=== PATIENT | male | born 1985 | race Asian ===

== ENCOUNTER 2024-10-15 14:56 | Emergency (ER) | payer OTHER, SELFPAY ==
[2024-10-15 15:11] VITALS: BP 102/63
[2024-10-15 15:43] LABS: ALT (SGPT) 23 U/L (0-50); AST (SGOT) 23 U/L (17-59); Albumin 4.6 g/dl (3.5-5.0); Alkaline Phosphatase 50 U/L (38-126); Blood Urea Nitrogen 20 mg/dl (9-20); Carbon Dioxide 26 mmol/L (22-30); Chloride 108 mmol/L (98-107); Glucose 132 mg/dl (70-99); Potassium 3.8 mmol/L (3.5-5.1); Sodium 141 mmol/L (135-145); Total Protein 7.5 g/dl (6.3-8.2); eGFR > 60.00
[2024-10-15 15:58] LABS: Hematocrit 39.5 % (39.0-52.0); Hemoglobin 13.8 g/dL (13.0-18.0); Mean Corp Hgb Conc. 34.9 g/dL (33.0-37.0); Mean Corpuscular Hgb 30.6 pg (27.0-31.0); Mean Corpuscular Volume 87.6 fL (80.0-94.0); Red Blood Cell Count 4.51 10^6/uL (4.70-6.10); Red Cell Dist. Width 13.6 % (11.5-14.5); White Blood Cell Count 3.7 10^3/uL (4.8-10.8)
--- NOTE | 2024-10-15 16:45 | ED.GENMED ---
History of Present Illness
General
Chief Complaint: Flank Pain
Source: patient
Exam Limitations: none
Time Seen by Provider: 10/15/24 16:43
Nursing documentation reviewed up to this point in time: agreed with
History of Present Illness
History of Present Illness:
Patient is a 39-year-old male who presents to the ER complaint of left lower back pain that is now radiating to his left leg. Patient reports symptoms started 2 to 3 days ago. He denies injury. He has pain worse with movement and can barely stand
today and walk. He denies any numbness tingling weakness to legs. He denies any bowel or bladder incontinence. He denies any injury trauma. He denies any radiation to his abdomen. Denies any testicular radiation. Denies any urinary frequency
urgency or dysuria. He denies any associated fever or chills. No prior history of kidney stone.
Review of Systems
Review of Systems
All Other Systems: ROS reviewed and negative except as documented in HPI and ROS
Constitutional: Reports no symptoms
Respiratory: Reports no symptoms
Cardiac: Reports no symptoms
ABD/GI: Reports no symptoms; Denies abdominal pain, nausea or vomiting
: Denies flank pain, urgency or discharge
Musculoskeletal: Reports other (left low back pain)
Skin: Reports no symptoms
Psychiatric: Reports no symptoms
Phy Exam
General Physical Exam
General Presentation: no apparent distress
General age: appears stated age
General Skin: warm and dry
General Habitus: normal
General Mental: alert
General Hydration: appears well hydrated
Neurological Exam
Neurological Exam: alert, oriented x3, no motor deficits, no sensory deficits and other ( normal distal sensation to bilateral lower extremities normal dorsiflexion plantarflexion; neg straight leg raise )
[place] Coma Scale
Eye Opening: Spontaneous
Verbal Response: Oriented
Motor Response: Obeys Commands
GCS Total Score: 15
Musculoskeletal Exam
Musculoskeletal Exam: other (+ mild left lateral lumbar region )
Skin Exam
Skin Exam: normal color and warm/dry
Psychiatric Exam
Psychiatric Exam: normal mood/affect
Course
Orders/Labs/Results
Orders:
Orders
10/15/24 15:23
Complete Blood Count/With Diff Urgent
Comprehensive Metabolic Panel Urgent
10/15/24 16:56
Ketorolac [Toradol] 30 mg IM NOW STA
10/15/24 16:57
Dexamethasone Pf [Decadron] 10 mg PO NOW STA
diazePAM [Valium Injection] 5 mg IM NOW STA
10/15/24 16:58
Lidocaine [Lidocaine 4% Patch] 1 patch TOPICAL NOW STA
Apply Lidocaine patch(s) to:: ll back
10/15/24 18:17
HYDROmorphone [Dilaudid] 1 mg IM NOW STA
Abnormal Lab Results
10/15/24
15:23
WBC 3.7 L 10^3/uL
(4.8-10.8)
RBC 4.51 L 10^6/uL
(4.70-6.10)
Plt Count 87 L 10^3/uL
(130-400)
Chloride 108 H mmol/L
(98-107)
Glucose 132 H mg/dl
(70-99)
10/15/24 15:23
10/15/24 15:23
Vital Signs
Initial and Last Documented VS:
Initial Vital Signs
Temp Pulse Resp BP Pulse Ox
97.9 F 65 16 102/63 100
10/15/24 15:11 10/15/24 15:11 10/15/24 15:11 10/15/24 15:11 10/15/24 15:11
Last Documented Vital Signs
Temp Pulse Resp BP Pulse Ox
97.9 F 82 18 103/70 99
10/15/24 15:11 10/15/24 19:08 10/15/24 19:08 10/15/24 19:08 10/15/24 19:08
General Maintenance Mechanic consulted with Physician
General Maintenance Mechanic consulted with physician?: Yes (Lora )
MDM/Problems Addressed
MDM/Problems Addressed:
Symptoms are consistent with low back pain, sciatica. Patient with no neurological deficits will DC with steroids, muscle relaxer. Vital signs stable. I did review with patient that his white count was minimally low at 3.7 and his platelets were
low as well. He has no bleeding complaints or issues. Discussed close outpatient follow-up with family doctor for further evaluation of these findings.
*Pulse Oximetry
SaO2: 100
Oxygen Mode of Delivery: Room air
Patient hypoxic: no
*Critical Care Note
Total Time (30-74mins, 75-104mins- exclusive of procedures): Not Applicable
ED Attending Note
-
Portions of this chart may have been created with voice recognition software.� Occasional wrong word or��sound alike� substitutions may have occurred due to the inherent limitations of voice recognition software.
Discharge Plan
Departure
Patient Disposition: Home (Routine Discharge)
Date of Disposition: 10/15/24
Time of Disposition: 19:35
Patient with high blood pressure during this ER visit?: No
Condition: Fair
Covid-19: Not Applicable
Discharge Problem:
Low back pain, Sciatica
Instructions: Low back pain - ED discharge instructions, Sciatica - ED discharge instructions
Prescriptions:
New
cyclobenzaprine 10 mg tablet
10 mg PO TID PRN (Reason: muscle spasm) Qty: 10 0RF
lidocaine 5 % adhesive patch,medicated
1 patch topical DAILY Qty: 15 0RF
Rx Instructions:
remove after 12 hrs. apply to affected area
prednisone 10 mg Tablet
See Rx Instructions .ROUTE .COMPLEX Qty: 30 0RF
Rx Instructions:
Take By Mouth:
40 mg daily x3 days, 30 mg daily x3 days,
20 mg daily x3 days, 10 mg daily x3 days.
Referrals:
Susan Levine MD [Active, Oncology]
Monae Ngo MD [Family Provider, Family Practice]
Activity Restrictions/Additional Instructions:
Avoid lifting, you may gently walk. Moist compresses to back several times a day.
take prednisone as prescribed. You may take muscle relaxer as needed this will cause drowsiness no driving or drinking alcohol or taking this medication. Tylenol as needed. Use lidocaine patch as directed. Follow-up closely with your family
doctor in the next 7 days for reevaluation return if any worsening of symptoms.
In addition your platelets were low here as well as your white count. This will need to be closely evaluated by family doctor/hematology. Please call to make an appoint with hematology and your family doctor tomorrow.
Return if any worsening of symptoms.
Interventions
Interventions:
*Risk Screen - Suicide Last Done: 10/15/24 15:13
*Neglect/Abuse Screening Last Done: 10/15/24 15:13
*Nursing Disposition Last Done: 10/15/24 19:42
Discharge Date and Time
Discharge Date/Time: 10/15/24 19:42
Print Language: INDONESIAN
[2024-10-15] MEDS: TORADOL 30 MG IM (17:09)
[2024-10-15] MEDS: DECADRON 10 MG PO (17:11)
[2024-10-15] MEDS: VALIUM INJECTION 5 MG IM (17:12)
[2024-10-15] MEDS: LIDOCAINE 4% PATCH 1 PATCH TOPICAL (17:13)
[2024-10-15 17:44] LABS: % Basophils 0.3 % (0-2); % Eosinophils 0.8 % (0-6); % Immature Granulocytes 0.3 % (0-0.5); % Neutrophils 57.6 % (42.2-75.2); Absolute Lymphocytes 1.4 10^3/uL (1.2-3.4); Absolute Monocytes 0.1 10^3/uL (0.1-0.6); Absolute Neutrophils 2.1 10^3/uL (1.4-6.5); Mean Platelet Volume 10.3 fL (7.4-10.4); Nucleated Red Blood Cells % 0 % (-); Platelet Count 87 10^3/uL (130-400)
[2024-10-15] MEDS: DILAUDID 1 MG IM (18:24)
[2024-10-15 19:08] VITALS: BP 103/70
== END 2024-10-15 19:42 | disposition home or self-care (01) ==
LOC: EMR 14:56
PROVIDERS: EMERGENCY PHYSICIAN Emergency Medicine; FAMILY PHYSICIAN Family Medicine
DX: M54.42 Lumbago with sciatica, left side (principal); R26.2 Difficulty in walking, not elsewhere classified; R10.9 Unspecified abdominal pain; M79.605 Pain in left leg
CPT/HCPCS: 99284; 96372 ×3; 80053; 85025